=== PATIENT | female | born 1990 ===

== ENCOUNTER 2023-01-01 13:12 | Emergency (ER) | payer BC, OTHER ==
[~2023-01-01] VITALS: Ht 147.3 cm; Wt 58.9 kg
[2023-01-01 13:20] VITALS: BP 104/76
--- NOTE | 2023-01-01 13:26 | ED Respiratory ---
General Stated Complaint: SOA Source: patient Exam Limitations: no limitations History of Present Illness Date Seen by Provider: Jan 01, 2023 Time Seen by Provider: 13:24 Initial Comments Patient is a 32-year-old female who presents to ED for cough and shortness of breath. She developed a cough 1 week ago. She reports mucus production with a cough. She reports some upper respiratory wheezing with deep inspiration. Started feeling short of breath with deep inspiration today. No current shortness of breath. She denies of any body aches, chills, weakness, ear pain, chest pain ,headache, dizziness, vomiting or diarrhea. She reports some scratchy throat. Denies history of asthma, COPD, coronary artery disease. Denies any recent travels or surgeries. Not on control. Denies taking medication at home. No one else at home with similar symptoms. Allergies and Home Medications Patient Home Medication List Home Medication List Reviewed: Yes Azithromycin (Azithromycin) 250 Mg Tablet, 250 MG PO UD Prescribed by: EMILY GONZALEZ on 01/01/23 9941 Review of Systems Review of Systems Constitutional: No chills, No diaphoresis, No fever, No malaise, No weakness EENTM: No ear pain, No blurred vision, No double vision Respiratory: cough, short of breath Cardiovascular: No chest pain Gastrointestinal: No abdominal pain, No diarrhea, No nausea, No vomiting Genitourinary: No decreased output, No discharge Musculoskeletal: No back pain, No joint pain Skin: No change in color, No change in hair/nails All Other Systems Reviewed Negative Unless Noted: Yes Physical Exam Vital Signs - First Documented 01/01/23 13:20 Temp 36.9 Pulse 86 Resp 16 B/P (MAP) 104/76 (85) Pulse Ox 100 Capillary Refill : Height: '" Weight: lbs. oz. 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, no motor/sensory deficits, alert, normal mood/affect, oriented x 3 Skin: normal color, warm/dry Progress/Results/Core Measures Suspected Sepsis SIRS Temperature: Pulse: Respiratory Rate: Blood Pressure / Mean: Results/Orders Lab Results Laboratory Tests Test 01/01/23 13:26 Range/Units Influenza Type A (RT-PCR) Not Detected Not Detecte Influenza Type B (RT-PCR) Not Detected Not Detecte SARS-CoV-2 RNA (RT-PCR) Not Detected Not Detecte My Orders Orders - RAFAEL PENNINGTON PA Chest 1 View, Ap/Pa Only (01/01/23 13:24) Covid 19 Inhouse Test (01/01/23 13:24) Influenza A And B By Pcr (01/01/23 13:24) Vital Signs/I&O 01/01/23 13:20 Temp 36.9 Pulse 86 Resp 16 B/P (MAP) 104/76 (85) Pulse Ox 100 Capillary Refill : Departure Communication (PCP) Patient presents ED with a cough with mucus production. Associated shortness of breath today with no current short of breath on arrival. No history of asthma, COPD or smoking. No known cardiac history. Denies any of any specific chest pain or abdominal pain. Vital signs stable. On exam no wheezing. No evidence of stridor. Oropharynx patent. Exam otherwise benign. Due to continuous cough chest x-ray COVID influenza was ordered. Differential diagnosis, pneumonia, viral syndrome, reactive airway disease she has not seen a provider and denies taking medication. Chest x-ray was negative for pneumonia. COVID influenza was negative. Due to no wheezing with aerated lungs nebulizer was held. Suspect upper respiratory infection bronchitis. Due to continue cough with associate shortness of breath will discharge azithromycin for atypical infection. Albuterol inhaler as needed if shortness of breath or wheezing worsen. Discussed Robitussin or Tessalon for cough. If any worsening symptoms such as shortness of breath, wheezing, chest pain to return back to ED. Follow-up your PCP in 2 to 3 days for reevaluation. Impression Primary Impression: Upper respiratory infection Disposition: HOME, SELF-CARE Condition: Stable Departure-Patient Inst. Decision time for Depature: 13:49 Referrals: NO,LOCAL PHYSICIAN (PCP/Family) Primary Care Physician Patient Instructions: Acute Bronchitis, Adult (DC) Add. Discharge Instructions: Recommend taking Robitussin or delsym for cough. Follow-up with your PCP in 2 to 3 days for reevaluation. Scripts Albuterol Sulfate (VENTOLIN HFA) 1 Puff Puff 2 PUFF INH Q4H PRN for SHORTNESS OF BREATH, #1 EA 1 PUFF = 90 MCG Prov: RAFAEL PENNINGTON 01/01/23 Azithromycin (Azithromycin) 250 Mg Tablet 250 MG PO UD, #6 TAB TAKE 2 TABLETS ON DAY ONE THEN TAKE 1 TABLET DAILY FOR FOUR MORE DAYS Prov: RAFAEL PENNINGTON 01/01/23 RAFAEL PENNINGTON Jan 01, 2023 13:26
--- NOTE | 2023-01-01 13:47 | Diagnostic Imaging Report ---
Indication: Cough and shortness of air. Findings: Lungs clear. No failure, effusion or pneumothorax. Impression: No acute-appearing abnormality. Dictated by: Dictated on workstation # [id number]
[2023-01-01] MEDS ORDERED: AZIT250T12 PO (13:51)
[2023-01-01] MEDS ORDERED: RT-ALBUINH INH (14:00)
== END 2023-01-01 14:00 | disposition home or self-care (01) ==
LOC: ER 13:16
DX: J06.9 Acute upper respiratory infection, unspecified (principal); Z20.822 Contact with and (suspected) exposure to COVID-19; Z28.310 Unvaccinated for COVID-19
CPT/HCPCS: 71045; 87636